=== PATIENT | female | born 1985 | race Caucasian/White ===

== ENCOUNTER 2018-07-12 22:20 | Inpatient (IN) | payer MEDICAID, OTHER ==
[~2018-07-12] VITALS: Ht 154.9 cm; Wt 72.9 kg
[2018-07-12] MEDS ORDERED: ACETAMINOPHEN 325 MG TAB PO STA (22:34)
[2018-07-12] MEDS ORDERED: CEFTRIAXONE 1 GM/50 ML (PMX) 50 ML IVPB STA (22:34)
[2018-07-12] MEDS ORDERED: SODIUM CHLORIDE 0.9% 1L BAG IV* STA (22:34)
[2018-07-12] MEDS ORDERED: ACET-141 PO (23:19)
[2018-07-12] MEDS ORDERED: CHOL100062 PO (23:19)
[2018-07-12] MEDS ORDERED: VENL75CA89 PO (23:19)
[2018-07-12] MEDS ORDERED: AZITHROMYCIN 500MG/NS (PMX) 250 ML IVPB ONE (23:30)
[2018-07-12] MEDS ORDERED: ACETAMINOPHEN 325 MG TAB PO PRN (23:30)
[2018-07-12] MEDS ORDERED: ONDANSETRON 4 MG INJ IV PRN (23:30)
--- NOTE | 2018-07-12 23:42 | ERD ---
ER Documentation Chief Complaint Chief Complaint C/O FEVER, CAUSEY, CWP, WEAKNESS X'S 1 HR HPI Patient is a 33-year-old female with thyroid disease who presents saying that she "started feeling cold". The patient is a headache and started shaking all over. She was slightly confused. She has fevers and reports having a cough recently. She has no urinary symptoms. She took 2 Tylenol this morning. Upon review of old medical records this is the patient's first visit to the emergency department. She does not remember the name of her primary doctor. ROS All systems reviewed and are negative except as per history of present illness. Medications Home Meds Reported Medications Acetaminophen* (Acetaminophen*) 500 MG Extra Strength Tablet, 500 MG PO Q4H PRN for PAIN AND OR ELEVATED TEMP, TAB 07/12/18 Venlafaxine Hcl* (Venlafaxine Hcl ER*) 75 Mg Cap.er.24h, 75 MG PO DAILY for 30 Days, #30 take 1 capsule by mouth once daily with food 07/12/18 Cholecalciferol* (Vitamin D3*) 1,000 Unit Tablet, 1000 UNIT PO DAILY for 30 Days, #30 TAKE 1 TABLET BY ORAL ROUTE EVERY DAY 07/12/18 Allergies Allergies: Coded Allergies: No Known Allergy (Unverified , 07/12/18) PMhx/Soc Positive for thyroid disease FmHx Family History: diabetes Physical Exam Vitals Vital Signs Date Temp Pulse Resp B/P (MAP) Pulse Ox O2 O2 Flow FiO2 Time Delivery Rate 07/12/18 103.1 23:05 07/12/18 103.1 140 22 163/103 98 22:26 (123) Physical Exam Const: Rigors diffusely Head: Atraumatic Eyes: Normal Conjunctiva ENT: Normal External Ears, Nose and Mouth. Neck: Full range of motion. No meningismus. Resp: Decreased breath sounds bilaterally Cardio: Tachycardic rate without murmur Abd: Soft, non tender, non distended. Normal bowel sounds Skin: No petechiae or rashes Back: No midline or flank tenderness Ext: No cyanosis, or edema Neur: Awake with mild confusion Result Diagram: 07/12/18225207/12/182252 Results 24 hrs Laboratory Tests Test 07/12/18 22:49 07/12/18 22:53 07/12/18 23:02 POC Venous Lactate 2.0 mmol/L White Blood Count 16.4 10^3/ul Red Blood Count 4.94 10^6/ul Hemoglobin 13.4 g/dl Hematocrit 41.0 % Mean Corpuscular Volume 83.0 fl Mean Corpuscular Hemoglobin 27.1 pg Mean Corpuscular 32.7 g/dl Hemoglobin Concent Red Cell Distribution Width 12.5 % Platelet Count 344 10^3/UL Mean Platelet Volume 9.8 fl Immature Granulocytes % 0.900 % Neutrophils % 76.3 % Lymphocytes % 17.0 % Monocytes % 5.0 % Eosinophils % 0.6 % Basophils % 0.2 % Nucleated Red Blood Cells % 0.0 /100WBC Immature Granulocytes # 0.140 10^3/ul Neutrophils # 12.6 10^3/ul Lymphocytes # 2.8 10^3/ul Monocytes # 0.8 10^3/ul Eosinophils # 0.1 10^3/ul Basophils # 0.0 10^3/ul Nucleated Red Blood Cells # 0.0 10^3/ul Prothrombin Time 13.4 Sec Prothrombin Time Ratio 1.0 INR International 1.01 Normalized Ratio Activated Partial Thromboplast 28.3 Sec Time Urine Color YELLOW Urine Clarity CLEAR Urine pH 6.0 Urine Specific [place] 1.014 Urine Ketones NEGATIVE mg/dL Urine Nitrite NEGATIVE mg/dL Urine Bilirubin NEGATIVE mg/dL Urine Urobilinogen NEGATIVE mg/dL Urine Leukocyte Esterase NEGATIVE Lisa/ul Urine Microscopic RBC 5 /HPF Urine Microscopic WBC 1 /HPF Urine Hemoglobin 2+ mg/dL Urine Glucose NEGATIVE mg/dL Urine Total Protein NEGATIVE mg/dl Sodium Level 142 mmol/L Potassium Level 4.1 mmol/L Chloride Level 104 mmol/L Carbon Dioxide Level 24 mmol/L Anion Gap 14 Blood Urea Nitrogen 21 mg/dl Creatinine 0.61 mg/dl Est Glomerular Filtrat > 60 mL/min Rate mL/min Glucose Level 106 mg/dl Calcium Level 9.6 mg/dl Total Bilirubin 0.3 mg/dl Direct Bilirubin 0.00 mg/dl Indirect Bilirubin 0.3 mg/dl Aspartate Amino Transf (AST/SGOT) 20 IU/L Alanine 36 IU/L Aminotransferase (ALT/SGPT) Alkaline Phosphatase 112 IU/L Troponin I Pending Total Protein 7.8 g/dl Albumin 4.2 g/dl Globulin 3.60 g/dl Albumin/Globulin Ratio 1.16 POC Beta HCG, Qualitative NEGATIVE Current Medications Medications Dose Sig/Palak Start Time Status Last (Trade) Ordered Route PRN Stop Time Admin Dose Reason Admin Sodium 2,180 ml BOLUS OVER 2 07/12/18 DC 07/12/18 Chloride HOURS STAT 22:34 22:59 (NS) IV* 07/12/18 22:35 650 mg ONCE STAT 07/12/18 DC 07/12/18 Acetaminophen PO 22:34 23:05 (Tylenol 07/12/18 22:35 Tab) Ceftriaxone 50 ml @ ONCE STAT 07/12/18 DC 07/12/18 Sodium 100 mls/hr IVPB 22:34 22:58 07/12/18 23:03 Azithromycin 250 ml @ ONCE ONCE 07/12/18 250 mls/hr IVPB 23:30 07/13/18 00:29 Ondansetron 4 mg BRIDGE ORDER 07/12/18 HCl (Zofran PRN IV 23:30 07/13/18 Inj) NAUSEA/VOMITI 23:29 NG 650 mg ER BRIDGE 07/12/18 Acetaminophen PRN PO 23:30 07/13/18 (Tylenol .MILD PAIN 23:29 Tab) 1-3 OR TEMP Procedures/MDM Chest X-ray 1V Interpreted by me: Soft Tissue: No acute abnormalities Bones: No acute abnormalities Mediastinum/Cardiac Silhouette/Lungs: Right-sided pneumonia EKG read by me: Rate/Rhythm: Sinus tachycardia Intervals: Normal Impression: Tachycardia without ischemia Sepsis Documentation: Patient's infectious symptoms have not stabilized and the patient is at risk of rapid decompensation. The patient will be admitted for careful hydration, antibiotic therapy, and infectious source control. SEVERE SEPSIS CRITERIA: Infectious source: Pneumonia End organ damage indicated by: Lactate 2.0 SEPSIS MANAGEMENT Time of recognition of sepsis: 2248. Time of recognition of severe sepsis: 2248. Time of recognition of septic shock: No septic shock at this time. 3 HOUR BUNDLE Blood cultures x 2 before broad-spectrum antibiotics: Yes 30 ml/kg NS bolus completed Initial lactate 2.0 Repeat lactate pending SEPTIC SHOCK ASSESSMENT: No lactic acid > 4.0 No persistent hypotension (SBP < 90 or 40 mmHg drop, MAP < 65) despite 30 mL/kg IV fluid bolus VOLUME REASSESSMENT FOR SEPTIC SHOCK: No septic shock at this time PERSISTENT HYPOTENSION TREATMENT: Comfort care no Central line not Required Vasopressor started not required I considered further perfusion assessment with CVP measurement, SCVO2, bedside ultrasound volume assessment, passive leg raise, trial of further fluid bolus. And proceeded with 30 ml/kg fluid bolus of NSS, broad spectrum antibiotics, and admission. The patient will be admitted to the care of Dr. Wallace as the patient has regal insurance. CRITICAL CARE Critical care time 35 minutes Emergent fluid management while maintaining close respiratory support. Provision of immediate and broad-spectrum antibiotic therapy. Simultaneous assessment for possible sources in order to direct targeted therapy. Consideration for invasive and chemical support to prevent cardiopulmonary collapse. Critical care time is independent of procedures performed. Departure Diagnosis: Primary Impression: Severe sepsis Additional Impression: Fever Fever type: unspecified Qualified Codes: R50.9 - Fever, unspecified Condition: JOSEFA Varela MD Jul 12, 2018 23:42
[2018-07-13] MEDS ORDERED: ACETAMINOPHEN 325 MG TAB PO PRN
[2018-07-13] MEDS: SOD CHLORIDE 0.9% 1,000 ML IV SCH ×4 (03:04→22:02)
[2018-07-13 03:17] VITALS: Ht 154.9 cm; Wt 72.9 kg
[2018-07-13 03:28] VITALS: BP 105/56; PULSE 97; RESP 18
[2018-07-13] MEDS: morphine 4 MG/ML VIAL IV PRN ×6 (04:15→23:16)
[2018-07-13 08:25] VITALS: BP 102/59; PULSE 79; RESP 18
[2018-07-13] MEDS ORDERED: LEVOFLOXACIN 750MG/D5W (PMX) 150 ML IVPB SCH (09:00)
--- NOTE | 2018-07-13 11:13 | HP ---
DATE OF ADMISSION: 07/12/2018 CHIEF COMPLAINT: Chills and rigors. HISTORY OF PRESENT ILLNESS: This is a 33-year-old female with a history of hypothyroidism, who prese nted to emergency room with complaint of chills and rigors. This was associated with headaches. The patient denied any stiff neck. She was somewhat confused. The patient denies chest pain. No short ness of breath. She has had a mild cough. No abdominal pain, nausea or vomiting. No genitourinary symptoms. Initial evaluation revealed a temperature of 103.1 degrees Fahrenheit. White blood cell c ount was elevated to 16.4. Chest x-ray was unremarkable. Urinalysis was also unremarkable. PAST MEDICAL HISTORY: Thyroidism. SOCIAL HISTORY: The patient denies tobacco or alcohol use. PHYSICAL EXAMINATION: GENERAL: Well-developed, well-nourished female who is in no apparent distress. VITAL SIGNS: Stable. She is afebrile. HEENT: Extraocular muscles are intact. Pupils are equal and reactive to light bilaterally. Sclerae are anicteric. Oropharynx is clear and moist. NECK: Supple, no JVD, no carotid bruits. LUNGS: Clear to auscultation bilaterally. CARDIAC: Regular rate and rhythm. No murmurs, rubs or gallops. ABDOMEN: Soft, nontender, nondistended, normoactive bowel sounds. BACK: No CVA tenderness. EXTREMITIES: No clubbing, cyanosis, or edema. NEUROLOGICAL: Nonfocal. ASSESSMENT: 1. A 33-year-old female with febrile illness. This could well be viremia. 2. Thyroidism not, however, patient is not on thyroid supplement. PLAN: Place in med/surg observation. Continue IV Rocephin. Check culture results. Dictated By: JOSE OLIVAS MD SK/NTS Conf#: [id number] DID#: [id number] CC: JOSE OLIVAS MD;*EndCC*
[2018-07-13] MEDS: CEFTRIAXONE 1 GM/50 ML (PMX) 50 ML IVPB SCH (11:34)
[2018-07-13 15:12] VITALS: BP 112/54; PULSE 82; RESP 19
[2018-07-13 20:00] VITALS: BP 122/80; PULSE 74; RESP 18
[2018-07-13] MEDS: DIPHENHYDRAMINE 50 MG CAP PO PRN (22:04)
[2018-07-14 02:00] VITALS: BP 103/57; PULSE 65; RESP 19
[2018-07-14] MEDS: DIPHENHYDRAMINE 50 MG CAP PO PRN (06:12)
[2018-07-14] MEDS: SOD CHLORIDE 0.9% 1,000 ML IV SCH (06:13)
[2018-07-14 07:50] VITALS: BP 110/57; PULSE 51; RESP 16
[2018-07-14] MEDS ORDERED: LEVO500T10 PO (09:48)
--- NOTE | 2018-07-14 09:48 | PDOCDIS ---
Discharge Instructions CONDITION [id number] Patient Condition: [id number] Good HOME CARE INSTRUCTIONS: [id number] Diet Instructions: Evupw1f Regular ACTIVITY: [id number] Activity Restrictions: [id number] No Restrictions FOLLOW UP/APPOINTMENTS Follow-up Plan pcp 1 week JOSE OLIVAS MD July 14, 2018 09:48
[2018-07-14] MEDS: morphine 4 MG/ML VIAL IV PRN (09:55)
[2018-07-14] MEDS: CEFTRIAXONE 1 GM/50 ML (PMX) 50 ML IVPB SCH (11:06)
--- NOTE | 2018-07-14 21:58 | DS ---
DATE OF ADMISSION: 07/12/2018 DATE OF DISCHARGE: 07/14/2018 DISCHARGE DIAGNOSIS: A 33-year-old female with febrile illness, resolved. HOSPITAL COURSE: A 33-year-old female with presumed history of hypothyroidism, presented to the [facility] room with complaints of chills and rigors. This was associated with some headache. Initially, the patient was found to be tachycardic and febrile. White blood cell count was 16,000. The patien t received empiric IV antibiotics. Chest x-ray was unremarkable. Urinalysis was normal. Her condit ion improved during the hospitalization. She remained afebrile. Influenza A and B were negative. B lood cultures showed no growth. No obvious source of infection was identified. The patient is in a stable condition for discharge. I prescribed 7 days of Levaquin. I asked the patient to follow up w ith her primary care provider in 1 week. Dictated By: JOSE OLIVAS MD SK/NTS Conf#: [id number] DID#: [id number] CC: JOSE OLIVAS MD;*EndCC*
== END 2018-07-14 13:45 | disposition home or self-care (01) | DRG 864 ==
LOC: E/R 22:20 → PP2 23:29
PROVIDERS: ADMIT Internal Medicine; ATTEND Internal Medicine
DX: R50.9 Fever, unspecified (principal); R65.10 Systemic inflammatory response syndrome (SIRS) of non-infectious origin without acute organ dysfunction; E03.9 Hypothyroidism, unspecified; R51 Headache
CPT/HCPCS: 36415; 70450; 71045; 80053; 81001; 81025; 83605; 84484; 85025; 85610; 85730; 87086; 87400; 93005; 96374; J0456; J0696; J1956; J2270; J7030

== ENCOUNTER 2018-07-19 21:54 | Emergency (ER) | payer OTHER ==
[~2018-07-19] VITALS: Ht 154.9 cm; Wt 68.9 kg
[~2018-07-19 21:54] MED LIST: ACET-141 PO; CHOL100062 PO; LEVO500T10 PO; VENL75CA89 PO
[2018-07-19 22:08] VITALS: Ht 154.9 cm; Wt 68.9 kg
[2018-07-19] MEDS ORDERED: KETOROLAC 30 MG INJ IV STA (23:21)
[2018-07-19] MEDS ORDERED: SOD CHLORIDE 0.9% 500 ML IV ONE (23:30)
[2018-07-20] MEDS ORDERED: LORAZEPAM 2 MG INJ IV ONE (01:30)
[2018-07-20] MEDS ORDERED: TRAM50TA2 PO (01:53)
[2018-07-20 02:08] VITALS: BP 112/64; PULSE 65; RESP 12
--- NOTE | 2018-07-20 02:44 | ERD ---
ER Documentation Chief Complaint Chief Complaint CP/ BACK PAIN; RECENT HX OF PNA HPI This is a very pleasant 33 female coming with reproducible chest wall pain for the past 2 days. Patient denies any fevers or chills. She did say she had a cough last week which she was admitted for. Reviewing EMR, patient was admitted for possible sepsis and discharged after 24 hours. No nausea no vomiting no chills. No other current complaints. Chest pain is moderate, reproducible worse with movement and deep breaths. Denies any leg swelling. Denies any shortness of breath. Denies any other current issues. ROS All systems reviewed and are negative except as per history of present illness. Medications Home Meds Active Scripts Tramadol HCl (Tramadol HCl) 50 Mg Tablet, 50 MG PO Q4 PRN for PAIN, #20 TAB Prov:ROBYN VALLADARES 07/20/18 Levofloxacin* (Levofloxacin*) 500 Mg Tablet, 500 MG PO DAILY for 7 Days, TAB Prov:JOSE OLIVAS MD 07/14/18 Reported Medications Acetaminophen* (Acetaminophen*) 500 MG Extra Strength Tablet, 500 MG PO Q4H PRN for PAIN AND OR ELEVATED TEMP, TAB 07/12/18 Venlafaxine Hcl* (Venlafaxine Hcl ER*) 75 Mg Cap.er.24h, 75 MG PO DAILY for 30 Days, #30 take 1 capsule by mouth once daily with food 07/12/18 Cholecalciferol* (Vitamin D3*) 1,000 Unit Tablet, 1000 UNIT PO DAILY for 30 Days, #30 TAKE 1 TABLET BY ORAL ROUTE EVERY DAY 07/12/18 Allergies Allergies: Coded Allergies: No Known Allergy (Unverified , 07/12/18) PMhx/Soc History of Surgery: Yes (2 c- sections ) Anesthesia Reaction: No Hx Neurological Disorder: No Hx Respiratory Disorders: No Hx Cardiac Disorders: No Hx Psychiatric Problems: Yes Hx Miscellaneous Medical Probl: No Hx Alcohol Use: No Hx Substance Use: No Hx Tobacco Use: No Smoking Status: Never smoker Physical Exam Vitals Vital Signs Date Temp Pulse Resp B/P (MAP) Pulse Ox O2 O2 Flow FiO2 Time Delivery Rate 07/20/18 97.8 65 12 112/64 100 Room Air 02:08 (80) 07/20/18 62 18 114/61 98 Room Air 01:22 (78) 07/19/18 97.8 98 18 110/79 99 Room Air 23:36 (89) 07/19/18 97.8 75 18 156/73 99 22:08 (100) Physical Exam Const: No acute distress Head: Atraumatic Eyes: Normal Conjunctiva ENT: Normal External Ears, Nose and Mouth. Neck: Full range of motion. No meningismus. Resp: Clear to auscultation bilaterally Cardio: Regular rate and rhythm, no murmurs. Reproducible chest wall tenderness midsternal region. No ecchymosis noted. Abd: Soft, non tender, non distended. Normal bowel sounds Skin: No petechiae or rashes Back: No midline or flank tenderness Ext: No cyanosis, or edema Neur: Awake and alert Psych: Normal Mood and Affect Result Diagram: 07/19/18233307/19/182333 Results 24 hrs Laboratory Tests Test 07/19/18 23:34 07/20/18 00:13 07/20/18 00:20 White Blood Count 8.9 10^3/ul Red Blood Count 4.74 10^6/ul Hemoglobin 12.8 g/dl Hematocrit 37.8 % Mean Corpuscular Volume 79.7 fl Mean Corpuscular Hemoglobin 27.0 pg Mean Corpuscular 33.9 g/dl Hemoglobin Concent Red Cell Distribution Width 12.3 % Platelet Count 310 10^3/UL Mean Platelet Volume 10.4 fl Immature Granulocytes % 0.500 % Neutrophils % 47.2 % Lymphocytes % 43.2 % Monocytes % 6.9 % Eosinophils % 1.6 % Basophils % 0.6 % Nucleated Red Blood Cells % 0.0 /100WBC Immature Granulocytes # 0.040 10^3/ul Neutrophils # 4.2 10^3/ul Lymphocytes # 3.8 10^3/ul Monocytes # 0.6 10^3/ul Eosinophils # 0.1 10^3/ul Basophils # 0.1 10^3/ul Nucleated Red Blood Cells # 0.0 10^3/ul Sodium Level 141 mmol/L Potassium Level 3.9 mmol/L Chloride Level 107 mmol/L Carbon Dioxide Level 25 mmol/L Anion Gap 9 Blood Urea Nitrogen 17 mg/dl Creatinine 0.56 mg/dl Est Glomerular Filtrat > 60 mL/min Rate mL/min Glucose Level 96 mg/dl Calcium Level 9.7 mg/dl Total Bilirubin 0.2 mg/dl Direct Bilirubin 0.00 mg/dl Indirect Bilirubin 0.2 mg/dl Aspartate Amino 17 IU/L Transf (AST/SGOT) Alanine 23 IU/L Aminotransferase (ALT/SGPT) Alkaline Phosphatase 88 IU/L Troponin I < 0.012 ng/ml B-Type Natriuretic Peptide 40 PG/ML Total Protein 7.7 g/dl Albumin 4.1 g/dl Globulin 3.60 g/dl Albumin/Globulin Ratio 1.13 Thyroid Stimulating < 0.015 MIU/L Hormone (TSH) Free Thyroxine Index 6.01 ug/ml Thyroxine (T4) 15.9 ug/dl Triiodothyronine (T3) Uptake 37.8 % Urine Color YELLOW Urine Clarity CLEAR Urine pH 5.0 Urine Specific [place] 1.020 Urine Ketones NEGATIVE mg/dL Urine Nitrite NEGATIVE mg/dL Urine Bilirubin NEGATIVE mg/dL Urine Urobilinogen NEGATIVE mg/dL Urine Leukocyte Esterase NEGATIVE Lisa/ul Urine Microscopic RBC 0 /HPF Urine Microscopic WBC 0 /HPF Urine Bacteria FEW /HPF Urine Hemoglobin 2+ mg/dL Urine Glucose NEGATIVE mg/dL Urine Total Protein NEGATIVE mg/dl POC Beta HCG, Qualitative NEGATIVE Current Medications Medications Dose Sig/Palak Start Time Status Last (Trade) Ordered Route PRN Stop Time Admin Dose Reason Admin Ketorolac 30 mg ONCE STAT 07/19/18 DC 07/19/18 Tromethamine IV 23:21 07/19/18 23:43 (Toradol) 23:22 Sodium 500 ml @ Q1H ONCE 07/19/18 DC 07/19/18 Chloride 500 mls/hr IV 23:30 07/20/18 23:43 00:29 Lorazepam 1 mg ONCE ONCE 07/20/18 DC 07/20/18 (Ativan) IV 01:30 07/20/18 01:28 01:31 Procedures/MDM EKG: Rate/Rhythm: [Normal Sinus Rhythm] QRS, ST, T-waves: [No changes consistent w/ acute ischemia] Impression: [No evidence of ischemia or arrhythmia] Chest X-ray 1V Interpreted by me: Soft Tissue: No acute abnormalities Bones: No acute abnormalities Mediastinum/Cardiac Silhouette/Lungs: [No acute abnormalities] Medical decision making: Patient's thoracic symptoms have stabilized while in the department and are stable for outpatient follow up. Exam and work up not consistent w/ ischemia, arrhythmia, PE or dissection. Departure Diagnosis: Primary Impression: Chest pain Chest pain type: unspecified Qualified Codes: R07.9 - Chest pain, unspecified Condition: Stable Patient Instructions: Chest Wall Pain, Costochondritis ROBYN VALLADARES July 20, 2018 02:44
== END 2018-07-20 03:21 | disposition home or self-care (01) ==
LOC: E/R 21:54
DX: R07.9 Chest pain, unspecified (principal)
CPT/HCPCS: 36415; 71045; 80053; 81001; 81025; 83880; 84436; 84443; 84479; 84484; 85025; 93005; 96374; 96375; J1885; J2060; J7040; Z7502